=== PATIENT | female | born 1940 | race Caucasian/White ===

== ENCOUNTER 2021-12-01 09:24 | Outpatient (CLI) | payer MEDICARE | END 2021-12-01 09:25 | disposition home or self-care (01) | LOC: RAD-FRANK 09:24 | PROVIDERS: ATTEND Nurse Practitioner Family | DX: M25.511 Pain in right shoulder (principal); M19.011 Primary osteoarthritis, right shoulder ==

== ENCOUNTER 2023-07-05 12:40 | Outpatient (CLI) | payer MEDICARE | END 2023-07-05 12:41 | disposition home or self-care (01) | LOC: BICRAD 12:40 | PROVIDERS: ATTEND Nurse Practitioner Family | DX: M79.622 Pain in left upper arm (principal); M25.511 Pain in right shoulder ==

== ENCOUNTER 2025-02-03 14:27 | Inpatient (IN) | payer MEDICARE ==
[2025-02-03 17:03] LABS: #Basophils 0.04 10x3/uL (0.0-0.2); #Eosinophils 0.04 10x3/uL (0.0-0.7); #Monocytes 1.08 10x3/uL (0.11-0.59); #Neutrophils 6.80 10x3/uL (1.40-6.50); %Basophils 0.4 % (0.0-1.0); %Eosinophils 0.4 % (0.0-10.0); %Lymphocytes 16.6 % (21.0-51.0); %Monocytes 11.3 % (0.0-10.0); %Neutrophils 71.1 % (42.0-75.0); Hematocrit 43.4 % (36.0-47.0); Hemoglobin 14.1 g/dL (12.0-16.0); Mean Corpuscular Hemoglobin 28.7 pg (27.0-31.0); Mean Corpuscular Volume 88.4 fL (78.0-98.0); Platelet Count 222 10x3/uL (130-400); Red Blood Cell (RBC) Count 4.91 mill/uL (4.20-5.40); White Blood Cell (WBC) Count 9.57 10x3/uL (4.8-10.8)
[2025-02-03 17:26] LABS: ALT (SGPT) 21 U/L (Less than 34); AST (SGOT) 31 U/L (11-34); Albumin 3.5 g/dL (3.1-4.5); Alkaline Phosphatase 111 U/L (40-110); Anion Gap 16 mmol/L (10-20); BUN (Urea Nitrogen) 18 mg/dL (9.8-20.1); Bilirubin, Total 1.3 mg/dL (0.3-1.2); Calc. Creatinine Clearance 0 mL/min (70-130); Calcium 9.0 mg/dL (7.8-10.44); Carbon Dioxide 27 mmol/L (23-31); Chloride 95 mmol/L (98-107); Globulin 3.0 g/dL (2.4-3.5); Glucose 107 mg/dL (83-110); Potassium 4.0 mmol/L (3.5-5.1); Sodium 134 mmol/L (136-145)
[2025-02-03] MEDS ORDERED: hydrALAZINE 20 MG/ML VIAL ONE ×2 (18:20→19:23)
[2025-02-03] MEDS ORDERED: Furosemide 40 MG (4 mL) VIAL ONE (18:20)
[2025-02-03] MEDS ORDERED: Senokot S 8.6-50 MG TAB PO PRN (19:25)
[2025-02-03] MEDS ORDERED: Calcium Carbonate 500 MG ChewTAB PO PRN (19:25)
[2025-02-03] MEDS ORDERED: Ondansetron PF 4 MG/2 ML Vial IVP PRN (19:25)
[2025-02-03] MEDS ORDERED: Electrolyte Replacement Protocol 1 EACH FS SCH (19:30)
[2025-02-03] MEDS: Furosemide 40 MG (4 mL) VIAL SLOW IVP SCH (23:04)
[2025-02-03] MEDS: Acetaminophen 325 MG TAB PO PRN (23:13)
[2025-02-03] MEDS: Lisinopril 20 MG TAB PO SCH (23:13)
[2025-02-03] MEDS: Nitroglycerin 2% Ointment 1 INCH/1 GM Packet TOP SCH (23:14)
[2025-02-03] MEDS: hydrALAZINE 20 MG/ML VIAL SLOW IVP SCH (23:14)
[2025-02-04 01:20] VITALS: BMI 27.9
[2025-02-04] MEDS: hydrALAZINE 20 MG/ML VIAL SLOW IVP SCH (04:48)
[2025-02-04] MEDS: Furosemide 40 MG (4 mL) VIAL SLOW IVP SCH (05:22)
[2025-02-04 05:58] LABS: #Basophils 0.03 10x3/uL (0.0-0.2); #Eosinophils Less than 0.03 10x3/uL (0.0-0.7); #Monocytes 0.94 10x3/uL (0.11-0.59); #Neutrophils 11.01 10x3/uL (1.40-6.50); %Basophils 0.2 % (0.0-1.0); %Eosinophils 0.0 % (0.0-10.0); %Lymphocytes 8.4 % (21.0-51.0); %Monocytes 7.1 % (0.0-10.0); %Neutrophils 83.7 % (42.0-75.0); Hematocrit 44.7 % (36.0-47.0); Hemoglobin 14.7 g/dL (12.0-16.0); Mean Corpuscular Hemoglobin 28.7 pg (27.0-31.0); Mean Corpuscular Volume 87.3 fL (78.0-98.0); Platelet Count 265 10x3/uL (130-400); Red Blood Cell (RBC) Count 5.12 mill/uL (4.20-5.40); White Blood Cell (WBC) Count 13.17 10x3/uL (4.8-10.8)
[2025-02-04] MEDS ORDERED: hydrALAZINE 20 MG/ML VIAL SLOW IVP PRN (06:00)
[2025-02-04 06:21] LABS: ALT (SGPT) 17 U/L (Less than 34); AST (SGOT) 37 U/L (11-34); Albumin 3.3 g/dL (3.1-4.5); Alkaline Phosphatase 103 U/L (40-110); Anion Gap 19 mmol/L (10-20); BUN (Urea Nitrogen) 20 mg/dL (9.8-20.1); Bilirubin, Total 1.2 mg/dL (0.3-1.2); Calc. Creatinine Clearance 42 mL/min (70-130); Calcium 9.0 mg/dL (7.8-10.44); Carbon Dioxide 25 mmol/L (23-31); Chloride 94 mmol/L (98-107); Globulin 3.3 g/dL (2.4-3.5); Glucose 114 mg/dL (83-110); Magnesium 1.8 mg/dL (1.6-2.6); Potassium 3.4 mmol/L (3.5-5.1); Sodium 135 mmol/L (136-145)
[2025-02-04] MEDS: Ezetimibe 10 MG TAB PO SCH (09:05)
[2025-02-04] MEDS: Carvedilol 25 MG TAB PO SCH (09:05)
[2025-02-04] MEDS: FLU (Fluad Triv) 25-26 (65UP)PF 45 MCG/0.5 ML Syringe IM ONE (09:06)
[2025-02-04] MEDS: Magnesium 2 GM/50 ML(in water) 2 GM in Premix 1 BAG IVPB SCH (11:41)
[2025-02-04] MEDS ORDERED: PHOS-NAK 1 PKT PACK PO PRN (12:15)
[2025-02-04] MEDS ORDERED: Magnesium 2 GM/50 ML(in water) 2 GM in Premix 1 BAG IVPB PRN (12:15)
[2025-02-04] MEDS ORDERED: Potassium Chloride 20 MEQ in Premix 1 BAG IVPB PRN (12:15)
[2025-02-04 20:49] LABS: Anion Gap 14 mmol/L (10-20); BUN (Urea Nitrogen) 26 mg/dL (9.8-20.1); Calc. Creatinine Clearance 32 mL/min (70-130); Calcium 8.5 mg/dL (7.8-10.44); Carbon Dioxide 22 mmol/L (23-31); Chloride 95 mmol/L (98-107); Glucose 140 mg/dL (83-110); Potassium 4.1 mmol/L (3.5-5.1); Sodium 127 mmol/L (136-145)
[2025-02-04] MEDS: Pantoprazole 40 MG DR.TAB PO SCH ×2 (23:10→23:11)
[2025-02-05 05:23] LABS: #Basophils 0.09 10x3/uL (0.0-0.2); #Eosinophils 0.05 10x3/uL (0.0-0.7); #Monocytes 1.93 10x3/uL (0.11-0.59); #Neutrophils 9.09 10x3/uL (1.40-6.50); %Basophils 0.7 % (0.0-1.0); %Eosinophils 0.4 % (0.0-10.0); %Lymphocytes 13.9 % (21.0-51.0); %Monocytes 14.8 % (0.0-10.0); %Neutrophils 69.8 % (42.0-75.0); Hematocrit 39.1 % (36.0-47.0); Hemoglobin 12.7 g/dL (12.0-16.0); Mean Corpuscular Hemoglobin 28.8 pg (27.0-31.0); Mean Corpuscular Volume 88.7 fL (78.0-98.0); Platelet Count 230 10x3/uL (130-400); Red Blood Cell (RBC) Count 4.41 mill/uL (4.20-5.40); White Blood Cell (WBC) Count 13.02 10x3/uL (4.8-10.8)
[2025-02-05 05:36] LABS: ALT (SGPT) 17 U/L (Less than 34); AST (SGOT) 45 U/L (11-34); Albumin 2.9 g/dL (3.1-4.5); Alkaline Phosphatase 78 U/L (40-110); Anion Gap 13 mmol/L (10-20); BUN (Urea Nitrogen) 32 mg/dL (9.8-20.1); Bilirubin, Total 1.1 mg/dL (0.3-1.2); Calc. Creatinine Clearance 25 mL/min (70-130); Calcium 8.4 mg/dL (7.8-10.44); Carbon Dioxide 26 mmol/L (23-31); Chloride 94 mmol/L (98-107); Globulin 2.6 g/dL (2.4-3.5); Glucose 115 mg/dL (83-110); Magnesium 2.6 mg/dL (1.6-2.6); Potassium 3.9 mmol/L (3.5-5.1); Sodium 129 mmol/L (136-145)
[2025-02-05 15:23] VITALS: BP 102/59; TEMP 98.5
== END 2025-02-05 15:23 | disposition home or self-care (01) | DRG 291 ==
LOC: SUATTDRO 14:27 → ERS 14:27 → 2NO 19:49
PROVIDERS: ADMIT Internal Medicine; ATTEND Internal Medicine
DX: I11.0 Hypertensive heart disease with heart failure (principal); I50.33 Acute on chronic diastolic (congestive) heart failure; I16.0 Hypertensive urgency; E78.5 Hyperlipidemia, unspecified; I25.10 Atherosclerotic heart disease of native coronary artery without angina pectoris; Z79.899 Other long term (current) drug therapy
CPT/HCPCS: 36415; 71045; 80053; 83735; 83880; 84443; 84484; 85025; 93005; 93306; 94760; 96374; 96375; 96376; J0360; J1940; J3475